=== PATIENT | female | born 1975 | race Caucasian/White ===

== ENCOUNTER 2017-01-26 09:14 | Emergency (ER) | payer MEDICAID, MEDICARE ==
[~2017-01-26] VITALS: Ht 167.6 cm; Wt 81.6 kg
[2017-01-26] MEDS ORDERED: IBUPROFEN 600 MG TABLET PO ONE ×2 (09:16→09:30)
[2017-01-26 10:28] VITALS: BP 149/68
== END 2017-01-26 10:29 | disposition home or self-care (01) ==
LOC: ER 09:15
DX: S89.92XA Unspecified injury of left lower leg, initial encounter (principal); G40.909 Epilepsy, unspecified, not intractable, without status epilepticus; F17.200 Nicotine dependence, unspecified, uncomplicated; F32.9 Major depressive disorder, single episode, unspecified; F43.10 Post-traumatic stress disorder, unspecified; Z59.0 Homelessness; Z88.5 Allergy status to narcotic agent; Z88.8 Allergy status to other drugs, medicaments and biological substances; V89.2XXA Person injured in unspecified motor-vehicle accident, traffic, initial encounter; Y93.89 Activity, other specified; Y92.89 Other specified places as the place of occurrence of the external cause; Y99.9 Unspecified external cause status
CPT/HCPCS: 29505; 73564; 73610; 99284; A4606; Z7610